=== PATIENT | male | born 1940 | race African-American/Black ===

== ENCOUNTER 2018-12-16 15:15 | Inpatient (IN) | payer OTHER ==
[~2018-12-16] VITALS: Ht 180.3 cm; Wt 85.4 kg
[2018-12-16] MEDS ORDERED: SODIUM CHLORIDE 0.9% 1,000 ML IV ONE (15:39)
[2018-12-16 16:25] LABS: Basophils # (auto) 0 uL; Basophils % (auto) 0.2 % (0.0-2.0); Eosinophils # (auto) 0 uL; Hemoglobin 12.8 g/dL (13.5-17.5); Lymphocytes # (auto) 0.5 uL; Lymphocytes % (auto) 16.1 % (10.0-50.0); Mean Corpuscular Hemoglobin 29.8 pg (28.0-32.0); Mean Corpuscular Hgb Conc. 32.8 g/dL (32.0-36.0); Monocytes # (auto) 0.2 uL; Monocytes % (auto) 6.9 % (0.0-12.0); Neutrophils # (auto) 2.5 uL; Neutrophils % (auto) 76.8 % (37.0-80.0); Nucleated Red Blood Cells % 0.1 %; Platelet Count (auto) 100 10^3/uL (140-450); Red Blood Cells 4.29 10^6/uL (4.5-5.90); Red Cell Distribution Width 12.9 % (11.8-14.3); White Blood Cell 3.3 10^3/uL (4.4-10.8)
[2018-12-16 16:33] LABS: Albumin 3.5 g/dL (3.4-5.0); Anion Gap 4 (5-15); Blood Urea Nitrogen 15 mg/dL (7-18); Calcium 7.8 mg/dL (8.5-10.1); Carbon Dioxide 29 mmol/L (21-32); Chloride 106 mmol/L (98-107); Glucose 118 mg/dL (74-106); Potassium 4.1 mmol/L (3.5-5.1); Sodium 139 mmol/L (136-145)
[2018-12-16 16:40] LABS: Alanine Aminotransferase 30 U/L (16-61); Alkaline Phosphatase 85 U/L (45-117); Aspartate Aminotransferase 24 U/L (15-37); BUN/Creatinine Ratio 11.6; Bilirubin, Total 0.7 mg/dL (0.2-1.0); GFR African American 69 mL/min; GFR Non-African American 57 mL/min; Total Protein 6.9 g/dL (6.4-8.2)
[2018-12-16 16:41] LABS: INR 1.01 (0.9-1.15); Partial Thromboplastin Time 23.3 sec (23.64-32.05)
[2018-12-16 16:44] LABS: Urine WBC None Seen /hpf (0 - 3)
[2018-12-16 17:26] LABS: Urine Bacteria FEW /hpf (None Seen); Urine Blood Negative /uL (Negative); Urine Mucus FEW (None Seen); Urine Specific Gravity 1.018 (1.001-1.035)
[2018-12-16] MEDS ORDERED: cefTRIAXone 1GM/50ML D5W 50 ML IV ONE (17:45)
[2018-12-16] MEDS ORDERED: ACETAMINOPHEN 325 MG TAB PO PRN (21:00)
[2018-12-16] MEDS ORDERED: ONDANSETRON HCL 4 MG/2 ML VIAL IV PRN (21:00)
[2018-12-16] MEDS ORDERED: TEMAZEPAM 15 MG CAP PO PRN (21:00)
[2018-12-16] MEDS ORDERED: DOCUSATE SOD 100 MG CAP PO PRN (21:00)
[2018-12-16] MEDS ORDERED: MORPHINE SULF INJ 2 MG/ML SYRINGE 1ML IV PRN (21:30)
[2018-12-16] MEDS ORDERED: NITROGLYCERIN 0.4 MG SL TAB SL PRN (21:30)
[2018-12-16] MEDS ORDERED: ATORVASTATIN 20 MG TAB PO SCH (22:00)
[2018-12-16] MEDS: FAMOTIDINE 20 MG TAB PO SCH (23:00)
[2018-12-16 23:08] VITALS: BP 158/79
--- NOTE | 2018-12-16 23:10 | NUR ---
Telemetry admit from ER RUBINA MOREL admitted to Telemetry unit after SBAR received. Patient oriented to Teena Prince, primary RN, unit, room, bed, and unit policies regarding patient care and visiting hours. Patient now on continuous telemetry monitoring, tele box #[id number] and telemetry reading on arrival to unit is SB @58BPM. Patient weighed by bed scale and encouraged to call if they need something. All questions and concerns addressed, patient verbalized understanding.
[2018-12-17] MEDS ORDERED: FINA5TAB4 PO (00:12)
[2018-12-17] MEDS ORDERED: GLIP5TAB12 PO (00:12)
[2018-12-17] MEDS ORDERED: CITA-77 PO (00:12)
[2018-12-17] MEDS ORDERED: ATOR20TA50 PO (00:12)
[2018-12-17] MEDS ORDERED: FLUT0.05 NAS (00:12)
[2018-12-17] MEDS ORDERED: TAMS0.4C36 PO (00:12)
[2018-12-17] MEDS ORDERED: ASPI-498 OR (00:12)
[2018-12-17] MEDS ORDERED: OMEP20TA PO (00:12)
[2018-12-17] MEDS ORDERED: SILD20TA PO (00:12)
[2018-12-17] MEDS ORDERED: AZEL0.1S (00:12)
[2018-12-17] MEDS ORDERED: LATA0.0015 EACHEYE (00:12)
[2018-12-17] MEDS ORDERED: ASPI81TA92 PO (00:12)
[2018-12-17] MEDS ORDERED: ROPI0.254 PO (00:12)
[2018-12-17 05:00] VITALS: BP 157/69
[2018-12-17 06:06] LABS: Basophils # (auto) 0 uL; Basophils % (auto) 0.3 % (0.0-2.0); Eosinophils # (auto) 0 uL; Hematocrit 35.8 % (41.0-53.0); Hemoglobin 12.2 g/dL (13.5-17.5); Lymphocytes # (auto) 0.9 uL; Lymphocytes % (auto) 32.5 % (10.0-50.0); Mean Corpuscular Hemoglobin 30.6 pg (28.0-32.0); Mean Corpuscular Hgb Conc. 34.1 g/dL (32.0-36.0); Mean Corpuscular Volume 89.9 fL (80.0-100.0); Monocytes # (auto) 0.3 uL; Monocytes % (auto) 9.6 % (0.0-12.0); Neutrophils # (auto) 1.7 uL; Neutrophils % (auto) 57.6 % (37.0-80.0); Nucleated Red Blood Cells % 0.2 %; Platelet Count (auto) 90 10^3/uL (140-450); Red Blood Cells 3.98 10^6/uL (4.5-5.90); Red Cell Distribution Width 12.6 % (11.8-14.3); White Blood Cell 2.9 10^3/uL (4.4-10.8)
--- NOTE | 2018-12-17 06:35 | NUR ---
WOUND CARE PHOTOS TAKEN AT THIS TIME RIGHT EYE LACERATION, WITH STERI STRIPS IN PLACE PRESENT UPON ADMISSION. PT S/P FALL AT HOME. NO ACTIVE DRAINAGE NOTED. DRY BLOOD NOTED AT SITE. EDEMA NOTED AT SITE.
[2018-12-17 06:44] LABS: Anion Gap 6 (5-15); BUN/Creatinine Ratio 10.8; Blood Urea Nitrogen 13 mg/dL (7-18); Calcium 7.6 mg/dL (8.5-10.1); Carbon Dioxide 27 mmol/L (21-32); Chloride 110 mmol/L (98-107); GFR African American 75 mL/min; GFR Non-African American 62 mL/min; Glucose 92 mg/dL (74-106); Potassium 4.2 mmol/L (3.5-5.1); Sodium 143 mmol/L (136-145)
--- NOTE | 2018-12-17 07:20 | NUR ---
Opening Shift Note Received report on the patient. Awake lying in bed. Patient shows no signs of distress at this time. Discussed plan of care with the patient. Bed is in the lowest position, side rails up x2, and call light is within reach. Will continue to monitor.
[2018-12-17 09:00] VITALS: BP 154/67
[2018-12-17] MEDS ORDERED: ENOXAPARIN SOD 40 MG/0.4 ML SYRINGE SC SCH (10:00)
[2018-12-17] MEDS ORDERED: BACITRACIN TOP OINT 1 UD PKG TOP SCH (10:00)
[2018-12-17] MEDS ORDERED: CITALOPRAM HYDROBR 20 MG TAB PO SCH (10:00)
[2018-12-17] MEDS: FAMOTIDINE 20 MG TAB PO SCH (10:41)
[2018-12-17 12:42] VITALS: BP 169/57
--- NOTE | 2018-12-17 14:16 | NUR ---
Transfer: Spoke to [facility] about pt transfer. Echo results are still pending and no cardio notes and Danielle aware. Pt most likely will go to [facility] per [facility]. Pt will go sometime today. Primary RN stated pt willing to go to [place].
--- NOTE | 2018-12-17 15:31 | NUR ---
[facility] will arrange transportation and call unit with updates. ph [phone]
[2018-12-17 16:51] VITALS: BP 183/80
[2018-12-17] MEDS ORDERED: cefTRIAXone 1GM/50ML D5W 50 ML IV SCH (18:00)
[2018-12-17] MEDS ORDERED: TAMSULOSIN HYDROCHLORIDE 0.4 MG CAP PO SCH (18:00)
--- NOTE | 2018-12-17 18:05 | NUR ---
SPOKE TO [facility], PATIENT BEING TRANSFERRED TO [facility], ROOM [address] Hayley PARRA. CALL REPORT TO CHARGE NURSE AT [phone] AFTER SHIFT CHANGE. [facility] WILL CALL AT 1999 FOR UPDATED VITALS.
--- NOTE | 2018-12-17 20:10 | NUR ---
[facility] CALL FROM [facility], UPDATED WITH 2000 VITAL SIGNS. ETA GIVEN OF 20-30 MIN VIA [facility]. CALL REPORT TO [phone].
[2018-12-17 20:12] VITALS: BP 149/71
--- NOTE | 2018-12-17 20:33 | NUR ---
REPORT GIVEN TO BELA MALAGON AT [facility]. ALL QUESTIONS AND CONCERNS ADDRESSED.
--- NOTE | 2018-12-17 20:54 | NUR ---
Pt being trans to another hosp Order obtained for transfer of RUBINA MOREL to [facility]. Report called/given to Marlen MALAGON at [phone]. Report given to EMS transport team. Medication reconciliation form completed and copy sent with patient's chart. Transported via gurney ([facility]) along with copied chart and imaging films/disk and all personal belongings. No distress noted on time of departure. Family (patient's ) notified of destination and room number by patient.
== END 2018-12-17 20:54 | disposition short-term general hospital (02) | DRG 309 ==
LOC: EDBD 15:15 → ER 15:19 → TELE 15:20 → TELE-WESTW 23:03
PROVIDERS: ADMIT Nurse Practitioner; ATTEND Internal Medicine Nephrology
DX: R00.1 Bradycardia, unspecified (principal); N39.0 Urinary tract infection, site not specified; R55 Syncope and collapse; N40.0 Benign prostatic hyperplasia without lower urinary tract symptoms; E78.5 Hyperlipidemia, unspecified; I10 Essential (primary) hypertension; I48.91 Unspecified atrial fibrillation; G62.9 Polyneuropathy, unspecified; I95.9 Hypotension, unspecified
CPT/HCPCS: 36415; 70450; 71045; 80048; 80053; 81001; 82962; 83880; 84484; 85025; 85610; 85730; 93005; 93306; 93886; G0378; J0696